=== PATIENT | male | born 1940 | race Caucasian/White ===

== ENCOUNTER 2018-10-10 14:32 | Emergency (ER) | payer MEDICARE, OTHER ==
[~2018-10-10] VITALS: Ht 175.3 cm; Wt 109.8 kg
--- OUTSIDE RECORDS SUMMARY | 2018-10-10 14:34 | XMS REPORT ---
Author Author [facility] Address Unknown Phone Unavailable Care Team Providers Care Criminal Attorney Name Role Phone DANA IRAHETA Unavailable Unavailable SUDHAKAR WEBER Unavailable Unavailable Problems This patient has no known problems. Allergies, Adverse Reactions, Alerts This patient has no known allergies or adverse reactions. Medications This patient has no known medications. Results Test Description Test Time Test Comments Text Results Atomic Results Result Comments KNEE RIGHT THREE VIEWS [place] [address] Patient Name: VERONICA LACY MR #: [id number] : 1940 Age/Sex: 76/M Req #: [id number] [facility] Physician: Ordered by: DANA IRAHETA MD Report #: [id number] Location: [facility] Room/Bed: Procedure: [id number] DX/KNEE RIGHT THREE VIEWS Exam Date: 04/22/17 Exam Time: 0839 REPORT STATUS: Signed PROCEDURE: X-RAY RIGHT KNEE, THREE OR MORE VIEWS COMPARISON: None. INDICATIONS: Right knee pain FINDINGS: No acute, displaced fracture or dislocation. Joint spaces are well-maintained. No definite joint effusion. Soft tissues are unremarkable. CONCLUSION: No acute osseous abnormality. Dictated by: Luisana Varela M.D. on 04/22/2017 at 9:03 Electronically approved by: Luisana Varela M.D. on 04/22/2017 at 9:03 Dictated By: LUISANA VARELA MD 2 Transcribed By: BANDAR on 04/22/17902 COPY TO: DANA IRAHETA MD CT ABDOMEN/PELVIS WO [facility] [address] [address] Patient Name: VERONICA LACY MR #: [id number] : 1940 Age/Sex: 76/M Req #: [id number] Adm Physician: Ordered by: DANA IRAHETA MD Report #: [id number] Location: CT Room/Bed: Procedure: [id number] CT/CT ABDOMEN/PELVIS WO Exam Date: 01/19/17 Exam Time: 1632 REPORT STATUS: Signed EXAM: CT Abdomen and Pelvis WITHOUT contrast INDICATION: Flank pain. Kidney stones. COMPARISON: 12/29/2016. TECHNIQUE: Abdomen and pelvis were scanned utilizing a multidetector helical scanner from the lung base to the pubic symphysis without administration of IV contrast. Absence of intravenous contrast decreases sensitivity for detection of focal lesions and vascular pathology. Coronal and sagittal reformations were obtained. Routine protocol was performed. IV CONTRAST: None. ORAL CONTRAST: None. RADIATION DOSE: Total DLP: 874.81 mGy*cm Estimated effective dose: (DLP x 0.015 x size factor) mSv COMPLICATIONS: None FINDINGS: LINES and TUBES: None. LOWER THORAX: Posterior bibasilar irregular densities suggestive of subsegmental a telectasis versus scarring. Punctate pleural-based calcified nodule in the posterior right lung base on image 26 series 3. Coronary artery calcifications. Stent within the left circumflex coronary artery and possibly distal LAD. Calcified left hilar lymph node on image 1. HEPATOBILIARY: No focal hepatic lesions. No biliary ductal dilation. GALLBLADDER: No radio- opaque stones or sludge. No wall thickening. SPLEEN: No splenomegaly. There are 2 small splenules. PANCREAS: No focal masses or ductal dilatation. ADRENALS: No adrenal nodules KIDNEYS/URETERS: Interval m igration of the previously described 8.2 mm calculus in the interpolar region of the right kidney, which is now located in the mid right ureter, resulting in obstruction with mild dilatation of the the right ureter proximal to it, and right pelvicalyceal system. Additional previously described left renal calculi are unchanged. Small cyst exophytic of the posterior interpolar region of the left kidney is also stable. GI TRACT: No abnormal distention, wall thickening, or evidence of bowel obstruction. Postoperative changes consistent with status post right hemicolectomy. Scattered colonic diverticulosis without CT evidence of diverticulitis. PELVIC ORGANS/BLADDER: The prostate is enlarged measuring 5.5 cm in transverse dimension. Mildly prominent bilateral inguinal lymph nodes the largest measuring 1.1 cm in short axis are nonspecific. LYMPH NODES: No lymphadenopathy. VESSELS: Mild calcification in the origin of the celiac axis. PERITONEUM / RETROPERITO NEUM: No free air or fluid. Mild increased density of the root of the mesentery fat associated with small mesenteric lymph nodes is a nonspecific finding, suggesting mild "mc mesentery". BONES: Spondylosis of the mid thoracic spine. SOFT TISSUES: Small fat-containing left inguinal hernia. IMPRESSION: 1. 8 mm obstructing calculus within the mid right ureter resulting in mild right hydroureteronephrosis. 2. Stable nonobstructing left nephrolithiasis. 3. Mildly enlarged prostate. 4. Colonic diverticulosis without diverticulitis. Discussed with Dr. Reveles at 5:35 PM on 01/19/2017. Signed by: Dr. Ellen Arias M.D. on 01/19/2017 5:35 PM Dictated By: ISAI ARIAS MD, MD 34 Transcribed By: BRENDA on 01/19/171734 COPY TO: DANA IRAHETA MD CT ABDOMEN/PELVIS [place] [address] Patient Name: VERONICA LACY MR #: [id number] : 1940 Age/Sex: 76/M Req #: [id number] [facility] Physician: Ordered by: SUDHAKAR WEBER MD Report #: [id number] Location: ER Room/Bed: Procedure: [id number] CT/CT ABDOMEN/PELVIS WO Exam Date: 12/29/16 Exam Time: 1430 REPORT STATUS: Signed EXAM: CT Abdomen and Pelvis WITHOUT contrast INDICATION: Right flank/abdominal pain. History of kidney stones. COMPARISON: None. TECHNIQUE: Abdomen and pelvis were scanned utilizing a multidetector helical scanner from the lung base to the pubic symphysis without administration of IV contrast. Absence of intravenous contrast decreases sensitivity for detection of focal lesions and vascular pathology. Coronal and sagittal reformations were obtained. Routine protocol was performed. IV CONTRAST: None. ORAL CONTRAST: Water RADIATION DOSE: Total DLP: 874.57 mGy*cm Estimated effective dose: (DLP x 0.015 x size factor) mSv COMPLICATIONS: None FINDINGS: LINES and TUBES: None. LOWER THORAX: Posterior bibasilar irregular densities suggestive of subsegmental atelectasis versus scarring. Punctate pleural-based calcified nodule in the posterior right lung base on image 26 series 3. Coronary artery calcifications. Calcified left hilar lymph node on image 1. HEPATOBILIARY: No focal hepatic lesions. No biliary ductal dilation. GALLBLADDER: No radio-opaque stones or sludge. No wall thickening. SPLEEN: No splenomegaly. There are 2 small splenules. PANCREAS: No focal masses or ductal dilatation. ADRENALS: No adrenal nodules KIDNEYS/URETERS: No hydronephrosis. Punctate calculus in the lower pole of the right kidney on images 69. 8.2 mm calculus in the interpolar region of the right kidney on image 61. 6 mm calculus in the posterior interpolar region of the left kidney on images 60. 8 mm calculus in the lower pole of the left kidney on images 71 series 3. 2.5 cm low-attenuation lesion consistent with a simple cyst exophytic of the posterior lower pole of the left kidney on images 64. Mild bilateral perinephric stranding without perinephric fluid collections. GI TRACT: No abnormal distention, wall thickening, or evidence of bowel obstruction. Postoperative changes consistent with status post right hemicolectomy. Scattered colonic diverticula without CT evidence of diverticulitis. PELVIC ORGANS/BLADDER: The prostate is enlarged measuring 5.5 cm in transverse dimension on image 169. Mildly prominent bilateral inguinal lymph nodes the largest measuring 1.1 cm in short axis are nonspecific. LYMPH NODES: No lymphadenopathy. VESSELS: Unremarkable. PERITONEUM / RETROPERITONEUM: No free air or fluid. Mild increased density of the root of the mesentery fat associated with small mesenteric lymph nodes is a nonspecific finding, suggesting mild "mc mesentery". BONES: Unremarkable. SOFT TISSUES: Small fat-containing left inguinal hernia. IMPRESSION: 1. Bilateral nonobstructing subcentimeter renal calculi. No hydronephrosis. 2. Mildly enlarged prostate. 3. Colonic diverticulosis without diverticulitis. Signed by: Dr. Ellen Arias M.D. on 12/29/2016 3:27 PM Dictated By: ISAI ARIAS MD, MD Electr onically Signed By: ISAI ARIAS MD, MD on 12/29/16 1527 Transcribed By: BRENDA on 12/29/16 1527 COPY TO: SUDHAKAR WEBER MD
[2018-10-10] MEDS ORDERED: ONDANSETRON HCL INJ 2MG/ML 2ML 2 MG/ML VIAL IV ONE (16:24)
[2018-10-10] MEDS ORDERED: IBUPROFEN 800MG/ 250ML 800 MG in SODIUM CHLORIDE 0.9% 250ML 250 ML IV STA (16:24)
[2018-10-10] MEDS ORDERED: SODIUM CHLORIDE 0.9% 1000ML 1,000 ML IV STA (16:25)
[2018-10-10] MEDS ORDERED: IBUPROFEN 800MG/ 250ML 250 ML IV ONE (16:30)
[2018-10-10] MEDS ORDERED: ONDANSETRON HCL INJ 2MG/ML 2ML 2 MG/ML VIAL ONE (16:31)
[2018-10-10 16:33] LABS: BASOPHILS # (AUTO) 0.1 (0.0-0.1); BASOPHILS % 0.7 % (0.0-1.0); EOSINOPHILS # (AUTO) 0.1 (0.0-0.4); EOSINOPHILS % 1.1 % (0.0-6.0); HEMATOCRIT 51.8 % (38.2-49.6); HEMOGLOBIN 17.9 g/dL (14.0-18.0); LYMPHOCYTES # (AUTO) 1.1 (1.0-3.2); MEAN CORPUSCULAR HEMOGLOBIN 29.7 pg (28-32); MEAN CORPUSCULAR HGB CONC 34.6 g/dL (31-35); MONOCYTES # (AUTO) 0.4 (0.2-0.8); NEUTROPHILS # (AUTO) 6.6 (2.1-6.9); NEUTROPHILS % 79.5 % (38.7-80.0); PLATELET COUNT 202 x10e3/uL (140-360); RED BLOOD COUNT 6.02 x10e6/uL (4.3-5.7); RED CELL DISTRIBUTION WIDTH 12.9 % (11.7-14.4)
[2018-10-10 16:36] LABS: BILIRUBIN,URINE NEGATIVE (NEGATIVE); CLARITY,URINE CLEAR (CLEAR); COLOR,URINE YELLOW (YELLOW); KETONES,URINE NEGATIVE (NEGATIVE); LEUKOCYTE ESTERASE ,URINE NEGATIVE (NEGATIVE); NITRITE,URINE NEGATIVE (NEGATIVE); PROTEIN,URINE DIPSTICK NEGATIVE (NEGATIVE); URINE UROBILINOGEN 0.2 mg/dL (0.2 - 1)
[2018-10-10 16:52] LABS: BACTERIA,URINE FEW /HPF; EPITHELIAL CELLS,URINE FEW /LPF; WBC,URINE (MAN) 0-5 /HPF (0-5)
[2018-10-10 16:53] LABS: ALANINE AMINOTRANSFERASE 18 IU/L (0-55); ALBUMIN 4.2 g/dL (3.5-5.0); ALBUMIN/GLOBULIN RATIO 1.4 (0.8-2.0); ALKALINE PHOSPHATASE 68 IU/L (40-150); AMYLASE 86 U/L (25-125); ANION GAP 11.1 mmol/L (8-16); BLOOD UREA NITROGEN 12 mg/dL (7-26); BUN/CREATININE RATIO 12 (6-25); CALCIUM 9.5 mg/dL (8.4-10.2); CARBON DIOXIDE 26 mmol/L (22-29); CHLORIDE 102 mmol/L (98-107); CREATININE, SERUM 0.99 mg/dL (0.72-1.25); EST GLOMERULAR FILTRATION RATE > 60 ML/MIN (60-); GLUCOSE 112 mg/dL (74-118); LIPASE 18 U/L (8-78); POTASSIUM 4.1 mmol/L (3.5-5.1); SODIUM 135 mmol/L (136-145)
--- NOTE | 2018-10-10 18:09 | NUR ---
PT INSIST HE DOES NOT HAVE HIGH BP AND TAKES NO MEDS AND ONLY HIGH HERE BECAUSE OF PAIN AND IN HOSPITAL. NOTIFIED [employer] SUPERVISOR OF ELEVATED BP'S. 223/105
--- NOTE | 2018-10-10 18:11 | NUR ---
CALLED CT AND SPOKE WITH EDILSON REGARDING CT RESULT. STATES HE WILL CHECK ON IT.
--- NOTE | 2018-10-10 18:26 | Diagnostic Imaging Report ---
EXAM: CT ABDOMEN/PELVIS WO DATE: 10/10/2018 4:25 PM INDICATION: Rule out renal stones COMPARISON: None TECHNIQUE: The abdomen and pelvis were scanned using a multidetector helical scanner. Coronal and sagittal reformations were obtained. CT low dose techniques were utilized, as applicable. IV Contrast: 0 ml Isovue 300/370 FINDINGS: Lack of IV contrast decreases sensitivity in evaluating abdominal and pelvic organs. LOWER THORAX: No consolidations LIVER/BILIARY: No masses. No ductal dilatation. GALLBLADDER: Unremarkable SPLEEN: Centimeter size hypodensity in the inferior spleen likely represents a hemangioma versus a cyst. Multiple splenules. PANCREAS: Unremarkable ADRENALS: No nodules KIDNEYS: Multiple bilateral nonobstructing renal calculi measuring up to 8 mm in the left inferior pole and 4 mm in the right mid pole. No ureteral, bladder, or ureteral calculi. Exophytic left renal cyst GI TRACT: No wall thickening or evidence of obstruction. Postsurgical changes of partial colectomy. VESSELS: Unremarkable PERITONEUM/RETROPERITONEUM: No free air or fluid LYMPH NODES: No lymphadenopathy REPRODUCTIVE ORGANS/BLADDER: Unremarkable SOFT TISSUES: Unremarkable BONES: Multilevel degenerative changes without aggressive osseous lesion. IMPRESSION: Bilateral nonobstructing renal calculi measuring up to 9 mm on the left and 4 mm on the right. No ureteral, bladder, or urethral calculi Signed by: Mitch Godinez MD on 10/10/2018 6:23 PM
[2018-10-10] MEDS ORDERED: DEXAMETHASONE SOD PHOS 10 MG/1 ML VIAL IM ONE (18:45)
--- NOTE | 2018-10-10 19:17 | NUR ---
REPORT TO DARRIUS PADILLA
[2018-10-10] MEDS ORDERED: MORPHINE SULFATE INJ 4 MG/ML INJ 1ML IV PRN (19:45)
[2018-10-10] MEDS ORDERED: ORPHENADRINE CITRATE 30 MG/ML VIAL IM ONE (19:45)
[2018-10-10 20:02] VITALS: BP 217/84
--- NOTE | 2018-10-10 20:21 | NUR ---
baron barnes is aware of discharge vital signs and has given me authrorization to discharge patient accordingly. patients is alert x 3, paulette, making needs known, no headaches, NIH stroke score negative, making needs known, patient complaints of pain to lower back 6 of 10 but does not want pain medications in er, patient had extensive conversation with baron barnes regarding bp on discharge. Baron BARNES has given persmission for discharge, patient in no distress laying in bed awaiting discharge instructions.
== END 2018-10-10 20:37 | disposition home or self-care (01) ==
LOC: ER 14:32
DX: M54.5 Low back pain (principal); R11.0 Nausea; S39.012A Strain of muscle, fascia and tendon of lower back, initial encounter; N20.1 Calculus of ureter
CPT/HCPCS: 36415; 74176; 80053; 81001; 82150; 83690; 85025; 99284; J2405

== ENCOUNTER → 2024-09-20 | Outpatient (REF) | payer MEDICARE | LOC: US 10:56 | PROVIDERS: ATTEND Nurse Practitioner Primary Care | DX: I31.39 Other pericardial effusion (noninflammatory) (principal) | CPT/HCPCS: 76604 ==

== ENCOUNTER → 2024-11-23 | Outpatient (REF) | payer MEDICARE, OTHER ==
[~2024-11-23] MED LIST: IOPAMIDOL 370 MG/ML 100 ML INFUS..BTL INJ ONE
[2024-11-23 13:03] LABS: EST GLOMERULAR FILTRATION RATE 60.0 ML/MIN (>=60)
== END ==
LOC: CT 11:58
PROVIDERS: ATTEND Internal Medicine Critical Care Medicine
DX: J90 Pleural effusion, not elsewhere classified (principal); R91.8 Other nonspecific abnormal finding of lung field; E04.1 Nontoxic single thyroid nodule
CPT/HCPCS: 36415; 71260; 82565; 84520; Q9967

== ENCOUNTER → 2024-12-11 | Outpatient (REF) | payer MEDICARE ==
[2024-12-11 08:29] LABS: BASOPHILS % 0.6 % (0.0-1.0); EOSINOPHILS % 4.8 % (0.0-6.0); LYMPHOCYTES % 9.1 % (18.0-39.1); MONOCYTES % 5.3 % (4.4-11.3); NEUTROPHILS % 79.8 % (38.7-80.0); RED CELL DISTRIBUTION WIDTH 16.1 % (11.7-14.4)
[2024-12-11 08:48] LABS: INR 0.88
[2024-12-11 10:41] LABS: BODY FLUID APPEARANCE CLOUDY; BODY FLUID COLOR RED; BODY FLUID TYPE PLEURAL; WBC,BODY FLUID 2343 cells/uL
[2024-12-11 11:12] LABS: EOSINOPHILS,BODY FLUID 1 %; LYMPHOCYTES,BODY FLUID 62 %; MONO/MACROPHG,BODY FLUID 22 %; NEUTROPHILS,BODY FLUID 15 %; TOTAL CELLS COUNTED (DIFF) 100
[2024-12-12 20:07] LABS: TOTAL PROTEIN,BODY FLUID 4.1 g/dL
== END ==
LOC: US 07:21
PROVIDERS: ATTEND Internal Medicine Critical Care Medicine
DX: J90 Pleural effusion, not elsewhere classified (principal)
CPT/HCPCS: 32555; 36415; 71045; 83615; 84157; 85025; 85610; 85730; 87070; 87205; 89051

== ENCOUNTER → 2025-01-02 | Outpatient (REF) | payer MEDICARE ==
[~2025-01-02] MED LIST changes: -IOPAMIDOL 370 MG/ML 100 ML INFUS..BTL INJ ONE; +LIDOCAINE HCL 1% 30ML-PF VIAL ONE
[2025-01-02 11:18] LABS: BODY FLUID APPEARANCE CLOUDY; BODY FLUID COLOR YELLOW; BODY FLUID TYPE PLEURAL
[2025-01-02 11:19] LABS: WBC,BODY FLUID 1975 cells/uL
[2025-01-02 11:55] LABS: EOSINOPHILS,BODY FLUID 2 %; LYMPHOCYTES,BODY FLUID 50 %; MONO/MACROPHG,BODY FLUID 44 %; NEUTROPHILS,BODY FLUID 4 %; TOTAL CELLS COUNTED (DIFF) 100
== END ==
LOC: US 07:29
PROVIDERS: ATTEND Internal Medicine Critical Care Medicine
DX: J90 Pleural effusion, not elsewhere classified (principal)
CPT/HCPCS: 32555; 36415; 71045; 87070; 87205; 89051; J2003; C1729

== ENCOUNTER → 2025-02-23 | Outpatient (REF) | payer MEDICARE ==
[~2025-02-23] MED LIST changes: +IOPAMIDOL 370 MG/ML 100 ML INFUS..BTL INJ ONE; -LIDOCAINE HCL 1% 30ML-PF VIAL ONE
[2025-02-23 08:46] LABS: EST GLOMERULAR FILTRATION RATE 68.0 ML/MIN (>=60)
== END ==
LOC: CT 07:19
PROVIDERS: ATTEND Internal Medicine Critical Care Medicine
DX: R06.00 Dyspnea, unspecified (principal); J90 Pleural effusion, not elsewhere classified
CPT/HCPCS: 36415; 71260; 82565; 84520; Q9967